=== PATIENT | male | born 1965 | race American Indian/Alaskan Native ===

== ENCOUNTER 2017-06-24 09:40 | Emergency (ER) | payer OTHER ==
[2017-06-24] MEDS ORDERED: TORADOL IM ONE (13:35)
--- NOTE | 2017-06-24 14:11 | Emergency Department Report ---
Upper Extremity - HPI Chief Complaint: Shoulder Injury Stated Complaint: RIGHT SHOULDER PAIN Time Seen by Provider: 06/24/17 13:05 Severity: moderate Symptoms: Yes Pain with Movement, No Deformity, No Limited Range of Movement, No Numbness, No Weakness, No Swelling, No Bruising/Ecchymosis, No Laceration or Abrasion Other History: 52-year-old male past medical history none presents with complaint of 2 weeks of right upper shoulder discomfort and tingling. Patient states he has sharp pain radiating from the back of his neck to his right shoulder and into his lateral right upper extremity. Some occasional sinus associated numbness and tingling with shooting intermittent pain. Pain slightly worse when he raises his right shoulder. Denies any direct trauma. 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 Denies any falls. Denies any headache lightheadedness and blurry vision dizziness chest pain palpitations shortness of breath fever or chills. Patient is visibly ranging his right shoulder without difficulty. Patient is awake alert and oriented 3 not in acute distress. ED Review of Systems ROS: Stated complaint: RIGHT SHOULDER PAIN Other details as noted in HPI Constitutional: denies: chills, fever Eyes: denies: eye pain, eye discharge, vision change ENT: denies: ear pain, throat pain Respiratory: denies: cough, shortness of breath, wheezing Cardiovascular: denies: chest pain, palpitations Endocrine: no symptoms reported Gastrointestinal: denies: abdominal pain, nausea, diarrhea Genitourinary: denies: urgency, dysuria Musculoskeletal: as per HPI. denies: back pain, joint swelling, arthralgia Skin: denies: rash, lesions Neurological: denies: headache, weakness, paresthesias Psychiatric: denies: anxiety, depression Hematological/Lymphatic: denies: easy bleeding, easy bruising ED Past Medical Hx - Past Medical History Previous Medical History?: No - Surgical History Past Surgical History?: No - Social History Smoking Status: Never Smoker Substance Use Type: Alcohol - Medications Home Medications: Home Medications Medication Instructions Recorded Confirmed Last Taken Type Naproxen 500 mg PO BID PRN #30 tablet 06/24/17 Unknown Rx methylPREDNISolone [Medrol] 4 mg PO DAILY #1 tab.ds.pk 06/24/17 Unknown Rx traMADol [Ultram 50 MG tab] 50 mg PO Q6HR PRN #18 tablet 06/24/17 Unknown Rx Upper Extremity Exam - Exam General: Vital signs noted. No distress. Alert and acting appropriately. Head and Torso: No HEENT Abnormality, No Neck Tenderness, No Chest/Lungs Abnormality, No Abdominal Tenderness, No Back Tenderness Shoulder Exam: Yes Normal Range of Motion in Shoulder (shoulder abduction and abduction and internal and external rotation intact both active and passive), No Shoulder Tenderness (some reproducible right anterior deltoid tenderness. No cellulitis no signs of septic joint), No Clavicle Tenderness, No Shoulder Deformity, No AC Joint Tenderness Arm Exam: No Arm/Humerus Tenderness, No Arm Deformity Elbow: No Elbow Tenderness, No Normal Range of Motion in Elbow, No Elbow Deformity Forearm: No Forearm Tenderness, No Forearm Deformity, No Pain with Pronation, No Pain with Supination Wrist: Yes Normal ROM in Wrist (strength 5 out of 5 right upper extremity.), No Wrist Tenderness, No Wrist Deformity, No Snuffbox Tenderness, No Pain with Axial Thumb Compression Hand: Yes Normal ROM in Digit(s) (range of motion right hand and wrist fully intact on clinical exam), No Hand Tenderness, No Hand Deformity, No Digit Tenderness, No Digit(s) Deformity, No Tendon Dysfunction CMS Exam: Yes Normal Distal Pulses (distal capillary refill less than 1 second, distal radial brachial and ulnar pulses strong to palpation.), Yes Normal Capillary Refill, Yes Normal Distal Sensation, No Broken Skin Front/Back of Body, Lg (Color): 1 - Pain in this region. ED Course Vital Signs 06/24/17 10:42 Temperature 97.8 F Pulse Rate 76 Respiratory 16 Rate Blood Pressure 137/83 O2 Sat by Pulse 98 Oximetry ED Medical Decision Making - Medical Decision Making A/P: Cervical radiculopathy, possible right shoulder rotator cuff injury 1-patient has no chest pain palpitations shortness of breath facial paresthesias facial droop. Neurologically intact on clinical exam. Cranial nerves 2, 3, 4, 5, 6, 7, 8,10, 11, 12 intact on clinical exam, patient is fully lucid awake alert and oriented 3 conversant. Denies any upper or lower extremity paresthesias and has 5/5 strength in bilateral upper and lower extremities on clinical exam. 2-I referred patient to primary care and orthopedics. 3-x-ray right shoulder shows no acute findings. CT neck shows degenerative changes at multiple levels. I discussed this with Dr. Sheppard who asked me to reach out to neurosurgery. I called Dr. Santos of neurosurgery and discussed finding and clinical hx and exam with him. No indication for acute neurosurgical intervention. Patient to follow up as an outpatient. I will give him referral information. 4- I specifically advised patient to return to the ED for paralysis inability to move his right upper extremity or total loss of sensation which patient does not have at this time. No clinical signs of severe cord impingement at this time Critical care attestation.: If time is entered above; I have spent that time in minutes in the direct care of this critically ill patient, excluding procedure time. ED Disposition Clinical Impression: Cervical radiculopathy Right shoulder pain Qualifiers: Chronicity: acute Qualified Code(s): M25.511 - Pain in right shoulder Disposition: DC- TO HOME OR SELFCARE Is pt being admited?: No Does the pt Need Aspirin: No Condition: Stable Instructions: Cervical Radiculopathy (ED) Prescriptions: methylPREDNISolone [Medrol] 4 mg PO DAILY #1 tab.ds.pk Naproxen 500 mg PO BID PRN #30 tablet PRN Reason: Pain traMADol [Ultram 50 MG tab] 50 mg PO Q6HR PRN #18 tablet PRN Reason: Pain Referrals: GUSTABO SANTOS MD [Staff Physician] - 3-5 Days [facility] [Provider Group] - 3-5 Days Time of Disposition: 17:28
[2017-06-24] MEDS ORDERED: TORADOL ONE (14:16)
--- NOTE | 2017-06-24 15:24 | Cat Scan Report ---
FINAL REPORT PROCEDURE: CT CERVICAL SPINE WO CON TECHNIQUE: Computerized tomography of the cervical spine was performed without contrast material. HISTORY: cervical radiculopathy right shoulder COMPARISON: None FINDINGS: Although not as sensitive as MRI to evaluate for soft tissue pathology there is a suspected broad-based disc protrusion central and left-sided at C3/C4. This impresses upon the ventral cord. Bulging annuli without definite herniation at C2/C3, C4/C5, and C5/C6 are suspected. Uncovertebral joint hypertrophy and small osteophyte produce mild right foraminal stenosis at C5/C6. There is no CT evident vertebral body or posterior element fracture. There is no subluxation. No paraspinal soft tissue mass is evident. 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 MRI would be of benefit for further evaluation. Subtle degenerative right foraminal stenosis at C5/C6..
--- NOTE | 2017-06-24 15:57 | XRay Report ---
RIGHT SHOULDER RADIOGRAPHS INDICATION: Right shoulder pain. COMPARISON: None similar at this institution. FINDINGS: Frontal and Y views of the right shoulder, 3 projections demonstrate normal humeral head contour, well positioned against the glenoid. Normal acromioclavicular joint. Preserved scapular contour. Normal visualized soft tissues, right ribs and lung. CONCLUSION: No acute right shoulder radiographic abnormality, as described. Thank you for the opportunity to participate in this patient's care.
[2017-06-24 16:03] VITALS: BP 139/87
== END 2017-06-24 17:38 | disposition home or self-care (01) ==
LOC: ED 09:40
DX: M25.511 Pain in right shoulder (principal); M54.12 Radiculopathy, cervical region
CPT/HCPCS: 72125; 73030; 96372; 99284; J1885